=== PATIENT | male | born 1945 | race Caucasian/White ===

== ENCOUNTER 2018-01-19 08:31 | Outpatient (CLI) | payer MEDICARE, BC, OTHER ==
--- NOTE | 2018-01-19 11:00 | ULT ---
RIGHT UPPER QUADRANT GALLBLADDER ULTRASOUND: HISTORY: Pain. COMPARISON: None. TECHNIQUE: Real-time franco-scale with color-flow and spectral analysis of the abdomen was performed. FINDINGS: There is diffuse increased hepatic echotexture of the liver, measuring 20 cm in length. The gallblad wendy is normal. The common bile duct is normal. Sonographic Navarro sign is negative. The pancreas is not well seen. The right kidney measures 11.9 x 4.1 x 5.2 cm without mass, hydroneph rosis, or abnormal calcification. IMPRESSION: Hepatomegaly with diffuse hepatic steatosis. POS: [facility]
== END 2018-01-19 08:32 | disposition home or self-care (01) ==
LOC: SCSULT 08:31
PROVIDERS: ATTEND Family Medicine
DX: R74.8 Abnormal levels of other serum enzymes (principal); R16.0 Hepatomegaly, not elsewhere classified; K76.0 Fatty (change of) liver, not elsewhere classified
CPT/HCPCS: 76705